=== PATIENT | male | born 1965 | race African-American/Black ===

== ENCOUNTER 2018-03-29 11:24 | Inpatient (IN) | payer OTHER ==
[2018-03-29 12:35] VITALS: BMI 31.9
--- NOTE | 2018-03-29 14:13 | HP ---
CIWA Score Nausea/Vomitin Muscle Tremors: 2 Anxiety: 2 Agitation: 2 Paroxysmal Sweats: 1-Minimal Palms Moist Orientation: 0-Oriented Tacttile Disturbances: 1-Very Mild Itch/Numbness Auditory Disturbances: 1-Very Mild Visual Disturbances: 0-None Headache: 2-Mild CIWA-Ar Total Score: 13 - Admission Criteria OASAS Guidelines: Admission for Medically Managed Detox: Requires at least one of the followin. CIWA greater than 12 2. Seizures within the past 24 hours 3. Delirium tremens within the past 24 hours 4. Hallucinations within the past 24 hours 5. Acute intervention needed for co occurring medical disorder 6. Acute intervention needed for co occurring psychiatric disorder 7. Severe withdrawal that cannot be handled at a lower level of care (continued vomiting, continued diarrhea, abnormal vital signs) requiring intravenous medication and/or fluids 8. Patient presents the following: CIWA greater than 12 Admission Criteria Met: Admission criteria met Admission ROS S - HPI Chief Complaint: i need help to stop drinking alcohol,cocaine Allergies/Adverse Reactions: Allergies Allergy/AdvReac Type Severity Reaction Status Date / Time No Known Allergies Allergy Verified 03/29/18 14:04 History of Present Illness: this 52 years old male with alcohol and cocaine dependence,seeking detox, withdrawal symptom,last detox [place] in 2013 completed history of hypertension,type 2 dm,hepatitis c history of angioplasty with stent in 2014 one stent,non compliance hypercholesterolemia history of overdose in 2007 longest period of sobriety 10 year plan to go to rehab - Ebola screening Have you traveled outside of the country in the last 21 days: No Have you had contact with anyone from an Ebola affected area: No Have you been sick,other than usual withdrawal symptoms: No Do you have a fever: No - Review of Systems Constitutional: Loss of Appetite, Night Sweats, Changes in sleep, Unintentional Wgt. Loss EENT: reports: Nose Congestion Respiratory: reports: No Symptoms reported Cardiac: reports: No Symptoms Reported GI: reports: Nausea, Vomiting, Abdominal cramping : reports: No Symptoms Reported Musculoskeletal: reports: Back Pain, Muscle Pain Integumentary: reports: Dryness Neuro: reports: Headache, Tremors Endocrine: reports: No Symptoms Reported Hematology: reports: No Symptoms Reported Psychiatric: reports: No Sypmtoms Reported, Judgement Intact, Mood/Affect Appropiate, Orientated x3, other (shizophrenia no med) Patient History - Patient Medical History Hx Anemia: No Hx Asthma: No Hx Chronic Obstructive Pulmonary Disease (COPD): No Hx Cancer: No Hx Cardiac Disorders: Yes (s/p angioplasty with stent in 2014) Hx Congestive Heart Failure: No Hx Hypertension: Yes (non compliance) Hx Hypercholesterolemia: Yes (non compliance) Hx Pacemaker: No HX Cerebrovascular Accident: No Hx Seizures: No Hx Dementia: No Hx Diabetes: Yes (non compliance) Hx Gastrointestinal Disorders: No Hx Liver Disease: No Hx Genitourinary Disorders: No Hx Sexually Transmitted Disorders: No Hx Renal Disease (ESRD): No Hx Thyroid Disease: No Hx Human Immunodeficiency Virus (HIV): No (2015 negative) Hx Hepatitis C: Yes (treated) Hx Depression: No Hx Suicide Attempt: Yes (overdose) Hx Bipolar Disorder: No Hx Schizophrenia: Yes (no ded) Other Medical History: no suicidal,no homicidal - Patient Surgical History Hx Cardiac Surgery: Yes (angioplasty with stent in 2014 in [place]) - PPD History Previous Implant?: Yes Documented Results: Negative w/o proof Implanted On Prior [facility] Admission?: No PPD to be Administered?: Yes - Smoking Cessation Smoking history: Current every day smoker Have you smoked in the past 12 months: Yes Aproximately how many cigarettes per day: 6 Cigars Per Day: 0 Hx Chewing Tobacco Use: No Initiated information on smoking cessation: Yes 'Breaking Loose' booklet given: 03/29/18 - Substance & Tx. History Hx Alcohol Use: Yes Hx Substance Use: Yes Substance Use Type: Alcohol, Cocaine Hx Substance Use Treatment: Yes ([place] in 2013) - Substances Abused Alcohol Route: Oral Frequency: Daily Amount used: 6 16 oz beers/ 1 pint rum Age of first use: 16 Date of Last Use: 03/29/18 Crack Route: Smoking Frequency: Daily Amount used: $200 Age of first use: 23 Date of Last Use: 03/27/18 Family Disease History - Family Disease History Family History: Denies Admission Physical Exam [facility] - Vital Signs Vital Signs: Vital Signs - 24 hr 03/29/18 12:33 Temperature 98.8 F Pulse Rate 84 Respiratory 20 Rate Blood Pressure 162/103 H - Physical General Appearance: Yes: Moderate Distress, Irritable, Sweating, Anxious HEENTM: Yes: Normal ENT Inspection, VITO, Pharynx Normal Respiratory: Yes: Lungs Clear, Normal Breath Sounds, No Respiratory Distress Neck: Yes: Within Normal Limits, Supple, Trachea in good position Breast: Yes: Within Normal Limits Cardiology: Yes: Within Normal Limits, Regular Rhythm, Regular Rate, S1, S2 Abdominal: Yes: Within Normal Limits, Normal Bowel Sounds, Non Tender, Soft Genitourinary: Yes: Within Normal Limits Back: Yes: Muscle Spasm Musculoskeletal: Yes: Back pain, Muscle Pain Extremities: Yes: Tremors Neurological: Yes: cement tile maker II-XII NML intact, Fully Oriented, Alert, Motor Strength 5/5 Integumentary: Yes: Dry Lymphatic: Yes: Within Normal Limits - Diagnostic (1) Alcohol dependence with uncomplicated withdrawal Current Visit: Yes Status: Acute (2) Essential hypertension Current Visit: Yes Status: Acute (3) Diabetes mellitus type 2 in nonobese Current Visit: Yes Status: Acute (4) Hypercholesterolemia Current Visit: Yes Status: Acute (5) Dehydration Current Visit: Yes Status: Acute (6) S/P angioplasty with stent Current Visit: Yes Status: Acute (7) Nicotine dependence Current Visit: Yes Status: Acute (8) Schizophrenia Current Visit: Yes Status: Acute (9) History of drug overdose Current Visit: Yes Status: Acute (10) History of hepatitis C Current Visit: Yes Status: Acute Cleared for Admission [facility] - Detox or Rehab [facility] Level of Care: Medically Managed Detox Regimen/Protocol: Librium [facility] Breath Alcohol Content Breath Alcohol Content: 0.011 Urine Drug Screen - Results Drug Screen Negative: No Urine Drug Screen Results: RONALDO-Cocaine
[2018-03-29] MEDS ORDERED: IBUPROFEN 400 MG TABLET (FP) PO PRN (15:02)
[2018-03-29] MEDS ORDERED: LOPERAMIDE HCL 2 MG CAPSULE PO PRN (15:02)
[2018-03-29] MEDS ORDERED: ACETAMINOPHEN 325 MG TABLET (FP) PO PRN (15:02)
[2018-03-29] MEDS ORDERED: MENTHOL/PHENOL 1 EACH UD MM PRN (15:02)
[2018-03-29] MEDS ORDERED: MAGNESIUM CITRATE 300 ML BOTTLE PO PRN (15:02)
[2018-03-29] MEDS ORDERED: guaiFENesin/D-METHORPHAN HB 10 ML UNIT-DOSE CUPS PO PRN (15:02)
[2018-03-29] MEDS ORDERED: MAG HYDROX/AL HYDROX/SIMETH 30 ML UNIT-DOSE CUP PO PRN (15:02)
[2018-03-29] MEDS ORDERED: MAGNESIUM HYDROX 2400MG/30ML ORAL SUSPENSION 30 ML CUP PO PRN (15:02)
[2018-03-29] MEDS ORDERED: P-EPHED 60MG/TRIPROLIDI 2.5MG TABLET PO PRN (15:02)
[2018-03-29] MEDS ORDERED: chlordiazePOXIDE HCL 25 MG CAPSULE PO PRN (15:02)
[2018-03-29] MEDS ORDERED: hydrOXYzine PAMOATE 25 MG CAPSULE (FP) PO PRN (15:02)
[2018-03-29] MEDS: chlordiazePOXIDE HCL 25 MG CAPSULE PO SCH ×2 (17:25→22:50)
[2018-03-29] MEDS ORDERED: MELATONIN 5 MG TABLETS PO PRN (22:00)
[2018-03-29] MEDS: THIAMINE HCL 100 MG TABLET (FP) PO SCH (22:51)
[2018-03-30] MEDS: chlordiazePOXIDE HCL 25 MG CAPSULE PO SCH ×4 (05:35→22:44)
[2018-03-30 09:59] LABS: HEMATOCRIT 39.5 % (35.4-49); MCH 28.3 pg (25.7-33.7); MEAN CELL VOLUME 85.8 fl (80-96); MEAN PLT VOLUME 8.5 fl (7.5-11.1); PLATELET COUNT 215 K/MM3 (134-434); RDW 16.4 % (11.9-15.9); WHITE BLOOD COUNT 4.9 K/mm3 (4.0-10.0)
[2018-03-30] MEDS: PANTOPRAZOLE 40 MG TABLET (FP) PO SCH (10:14)
[2018-03-30] MEDS: ASPIRIN COATED 81 MG TABLET.EC PO SCH (10:14)
[2018-03-30] MEDS: PRENATAL VITAMINS W/ FOLIC ACID TABLET (FP) PO SCH (10:14)
[2018-03-30 10:24] LABS: ALBUMIN 2.9 g/dl (3.4-5.0); ALK PHOS 59 U/L (45-117); ANION GAP 9 MMOL/L (8-16); BILIRUBIN,TOTAL 0.6 mg/dL (0.2-1); BLOOD UREA NITROGEN 13 mg/dL (7-18); CALCIUM 8.3 mg/dL (8.5-10.1); CHLORIDE 106 mmol/L (98-107); CO2 25 mmol/L (21-32); CREATININE 0.9 mg/dL (0.55-1.3); GLUCOSE,RANDOM 131 mg/dL (74-106); POTASSIUM 4.2 mmol/L (3.5-5.1); SGOT/AST 18 U/L (15-37); SGPT/ALT 24 U/L (13-61); SODIUM 140 mmol/L (136-145); TOT PROT 6.3 g/dl (6.4-8.2)
[2018-03-30 10:49] LABS: SICKLE CELL SCREEN NEGATIVE (NEGATIVE)
[2018-03-30] MEDS ORDERED: FLU VACCINE QUAD 60 MCG/0.5 ML (MDV 18-19) IM ONE (12:00)
--- NOTE | 2018-03-30 12:33 | PN ---
S CIWA - CIWA Score Nausea/Vomitin Muscle Tremors: 4-Moderate,w/Arms Extend Anxiety: 4-Mod. Anxious/Guarded Agitation: 2 Paroxysmal Sweats: 3 Orientation: 0-Oriented Tacttile Disturbances: 1-Very Mild Itch/Numbness Auditory Disturbances: 0-None Visual Disturbances: 0-None Headache: 1-Very Mild CIWA-Ar Total Score: 17 [facility] Progress Note (SOAP) Subjective: Tremor, interrupted sleep, nausea Objective: 03/30/18 12:23 Last Vital Signs Temp Pulse Resp BP Pulse Ox 97.1 F L 84 18 123/77 03/30/18 09:30 03/30/18 09:30 03/30/18 09:30 03/30/18 09:30 Laboratory Tests 03/29/18 03/29/18 03/30/18 14:19 16:28 05:34 WBC RBC Hgb Hct MCV MCH MCHC RDW Plt Count MPV Sickle Cell Screen Sodium Potassium Chloride Carbon Dioxide Anion Gap BUN Creatinine Creat Clearance w eGFR POC Glucometer 171 176 145 Random Glucose Calcium Total Bilirubin AST ALT Alkaline Phosphatase Total Protein Albumin RPR Titer HIV 1&2 Antibody Screen HIV P24 Antigen 03/30/18 03/30/18 03/30/18 07:00 07:00 07:00 WBC 4.9 RBC 4.60 Hgb 13.0 Hct 39.5 MCV 85.8 MCH 28.3 MCHC 33.0 RDW 16.4 H Plt Count 215 MPV 8.5 Sickle Cell Screen Negative Sodium 140 Potassium 4.2 Chloride 106 Carbon Dioxide 25 Anion Gap 9 BUN 13 Creatinine 0.9 Creat Clearance w eGFR > 60 POC Glucometer Random Glucose 131 H Calcium 8.3 L Total Bilirubin 0.6 AST 18 ALT 24 Alkaline Phosphatase 59 Total Protein 6.3 L Albumin 2.9 L RPR Titer HIV 1&2 Antibody Screen Negative HIV P24 Antigen Negative 03/30/18 07:00 WBC RBC Hgb Hct MCV MCH MCHC RDW Plt Count MPV Sickle Cell Screen Sodium Potassium Chloride Carbon Dioxide Anion Gap BUN Creatinine Creat Clearance w eGFR POC Glucometer Random Glucose Calcium Total Bilirubin AST ALT Alkaline Phosphatase Total Protein Albumin RPR Titer Nonreactive HIV 1&2 Antibody Screen HIV P24 Antigen Labs reviewed: elevated glucose due to DMT2 Assessment: 03/30/18 12:25 Withdrawal symptoms Noted with hyperglycemia Plan: Continue detox Encouraged PO water intak Hyperglycemia: secondary to DMT2; stable, continue finger stick, start metformin 500mg PO bid, start insulin novolog sliding scale with coverage bid
[2018-03-30] MEDS: metFORMIN HCL 500 MG TABLET (FP) PO SCH (17:20)
[2018-03-30] MEDS: INSULIN SLIDING SCALE (NOVOLOG) 1 VIAL SQ SCH (17:25)
[2018-03-30] MEDS: THIAMINE HCL 100 MG TABLET (FP) PO SCH (22:45)
[2018-03-31] MEDS: chlordiazePOXIDE HCL 25 MG CAPSULE PO SCH ×2 (05:40→10:15)
[2018-03-31] MEDS: metFORMIN HCL 500 MG TABLET (FP) PO SCH ×2 (07:23→17:27)
[2018-03-31] MEDS: INSULIN SLIDING SCALE (NOVOLOG) 1 VIAL SQ SCH ×2 (07:23→17:39)
[2018-03-31] MEDS: PANTOPRAZOLE 40 MG TABLET (FP) PO SCH (07:23)
[2018-03-31] MEDS: ASPIRIN COATED 81 MG TABLET.EC PO SCH (10:15)
[2018-03-31] MEDS: PRENATAL VITAMINS W/ FOLIC ACID TABLET (FP) PO SCH (10:15)
[2018-03-31] MEDS: amLODIPine BESYLATE 10 MG TABLET (FP) PO SCH (12:54)
--- NOTE | 2018-03-31 16:00 | PN ---
[facility] CIWA - CIWA Score Nausea/Vomitin-Mild Nausea/No Vomiting Muscle Tremors: 3 Anxiety: 2 Agitation: 2 Paroxysmal Sweats: 2 Orientation: 0-Oriented Tacttile Disturbances: 0-None Auditory Disturbances: 0-None Visual Disturbances: 0-None Headache: 0-None Present CIWA-Ar Total Score: 10 S Progress Note (SOAP) Subjective: Sweating, interrupted sleep Objective: 03/31/18 15:57 Last Vital Signs Temp Pulse Resp BP Pulse Ox 97.3 F L 71 18 160/99 03/31/18 13:05 03/31/18 15:23 03/31/18 15:23 03/31/18 15:23 Elevated b/p noted (h/o htn, started on norvasc 10mg daily) Laboratory Tests 03/29/18 03/29/18 03/30/18 14:19 16:28 05:34 WBC RBC Hgb Hct MCV MCH MCHC RDW Plt Count MPV Sickle Cell Screen Sodium Potassium Chloride Carbon Dioxide Anion Gap BUN Creatinine Creat Clearance w eGFR POC Glucometer 171 176 145 Random Glucose Calcium Total Bilirubin AST ALT Alkaline Phosphatase Total Protein Albumin RPR Titer HIV 1&2 Antibody Screen HIV P24 Antigen 03/30/18 03/30/18 03/30/18 07:00 07:00 07:00 WBC 4.9 RBC 4.60 Hgb 13.0 Hct 39.5 MCV 85.8 MCH 28.3 MCHC 33.0 RDW 16.4 H Plt Count 215 MPV 8.5 Sickle Cell Screen Negative Sodium 140 Potassium 4.2 Chloride 106 Carbon Dioxide 25 Anion Gap 9 BUN 13 Creatinine 0.9 Creat Clearance w eGFR > 60 POC Glucometer Random Glucose 131 H Calcium 8.3 L Total Bilirubin 0.6 AST 18 ALT 24 Alkaline Phosphatase 59 Total Protein 6.3 L Albumin 2.9 L RPR Titer HIV 1&2 Antibody Screen Negative HIV P24 Antigen Negative 03/30/18 03/30/18 03/31/18 07:00 16:22 05:39 WBC RBC Hgb Hct MCV MCH MCHC RDW Plt Count MPV Sickle Cell Screen Sodium Potassium Chloride Carbon Dioxide Anion Gap BUN Creatinine Creat Clearance w eGFR POC Glucometer 181 176 Random Glucose Calcium Total Bilirubin AST ALT Alkaline Phosphatase Total Protein Albumin RPR Titer Nonreactive HIV 1&2 Antibody Screen HIV P24 Antigen Labs reviewed Assessment: 03/31/18 15:58 Withdrawal symptoms Plan: Continue detox Encouraged PO water intake Htn, uncontrolled: start norvasc 10mg PO daily, continue to monitor Patient for early discharge tomorrow to [facility] rehab. Detox protocol adjusted to accommodate discharge.
[2018-03-31] MEDS ORDERED: chlordiazePOXIDE 5 MG CAPSULE PO SCH (17:00)
[2018-03-31] MEDS: chlordiazePOXIDE 5 MG CAPSULE PO SCH ×2 (17:25→22:19)
[2018-03-31] MEDS ORDERED: chlordiazePOXIDE HCL 25 MG CAPSULE PO PRN (21:05)
[2018-03-31] MEDS: THIAMINE HCL 100 MG TABLET (FP) PO SCH (22:19)
[2018-04-01] MEDS ORDERED: NICOTINE POLACRILEX 2 MG GUM BUC PRN (00:15)
[2018-04-01] MEDS: chlordiazePOXIDE 5 MG CAPSULE PO SCH (05:13)
[2018-04-01] MEDS: INSULIN SLIDING SCALE (NOVOLOG) 1 VIAL SQ SCH (07:23)
[2018-04-01] MEDS: metFORMIN HCL 500 MG TABLET (FP) PO SCH (07:23)
[2018-04-01] MEDS: PANTOPRAZOLE 40 MG TABLET (FP) PO SCH (07:23)
[2018-04-01 07:25] VITALS: TEMP 97.6
[2018-04-01] MEDS: ASPIRIN COATED 81 MG TABLET.EC PO SCH (09:22)
[2018-04-01] MEDS: PRENATAL VITAMINS W/ FOLIC ACID TABLET (FP) PO SCH (09:22)
[2018-04-01] MEDS: amLODIPine BESYLATE 10 MG TABLET (FP) PO SCH (09:22)
[2018-04-01 09:36] VITALS: BP 162/109; PULSE 90
[2018-04-01] MEDS ORDERED: chlordiazePOXIDE 5 MG CAPSULE PO SCH (11:00)
[2018-04-01] MEDS ORDERED: chlordiazePOXIDE HCL 10 MG CAPSULE PO SCH ×2 (11:00→17:00)
[2018-04-01] MEDS ORDERED: cloNIDine HCL 0.1 MG TABLET PO PRN (11:12)
--- NOTE | 2018-04-01 13:46 | DS ---
[facility] Detox Discharge Summary Admission Date: 03/29/18 Discharge Date: 04/01/18 - History Present History: Alcohol Dependence, Cocaine Dependence Additional Comments: Patient accepted admission to [facility] rehab. Detox completed successfully. Patient is A, A, Ox3, in nad, htn (uncontrolled), started on norvasc 10mg daily and clonidine prn. Patient educated on importance of taking his antihypertensive and antidiabetic medication, to change his lifestyle by eating healthier and exercise as tolerated to lose weight. As per patient, he was on blood pressure and diabetic medication but he stopped taking it for the past 3- 4 years. Patient educated on risk and complication of uncontrolled htn and diabetes. Patient instructed to follow up with his PCP within 1-2 weeks after discharge. Pertinent Past History: HTN DMT2 with hyperglycemia Cocaine dependence Alcohol dependence Hepatitis C HLD CAD with stent Schizophrenia - Physical Exam Results Vital Signs: Vital Signs Temperature 97.6 F 04/01/18 09:35 Pulse Rate 90 04/01/18 09:35 Respiratory Rate 19 04/01/18 09:35 Blood Pressure 162/109 H 04/01/18 09:35 O2 Sat by Pulse Oximetry (%) Pertinent Admission Physical Exam Findings: Withdrawal symptoms Laboratory Tests 03/29/18 03/29/18 03/30/18 14:19 16:28 05:34 WBC RBC Hgb Hct MCV MCH MCHC RDW Plt Count MPV Sickle Cell Screen Sodium Potassium Chloride Carbon Dioxide Anion Gap BUN Creatinine Creat Clearance w eGFR POC Glucometer 171 176 145 Random Glucose Calcium Total Bilirubin AST ALT Alkaline Phosphatase Total Protein Albumin RPR Titer HIV 1&2 Antibody Screen HIV P24 Antigen 03/30/18 03/30/18 03/30/18 07:00 07:00 07:00 WBC 4.9 RBC 4.60 Hgb 13.0 Hct 39.5 MCV 85.8 MCH 28.3 MCHC 33.0 RDW 16.4 H Plt Count 215 MPV 8.5 Sickle Cell Screen Negative Sodium 140 Potassium 4.2 Chloride 106 Carbon Dioxide 25 Anion Gap 9 BUN 13 Creatinine 0.9 Creat Clearance w eGFR > 60 POC Glucometer Random Glucose 131 H Calcium 8.3 L Total Bilirubin 0.6 AST 18 ALT 24 Alkaline Phosphatase 59 Total Protein 6.3 L Albumin 2.9 L RPR Titer HIV 1&2 Antibody Screen Negative HIV P24 Antigen Negative 03/30/18 03/30/18 03/31/18 07:00 16:22 05:39 WBC RBC Hgb Hct MCV MCH MCHC RDW Plt Count MPV Sickle Cell Screen Sodium Potassium Chloride Carbon Dioxide Anion Gap BUN Creatinine Creat Clearance w eGFR POC Glucometer 181 176 Random Glucose Calcium Total Bilirubin AST ALT Alkaline Phosphatase Total Protein Albumin RPR Titer Nonreactive HIV 1&2 Antibody Screen HIV P24 Antigen 03/31/18 04/01/18 16:31 05:12 WBC RBC Hgb Hct MCV MCH MCHC RDW Plt Count MPV Sickle Cell Screen Sodium Potassium Chloride Carbon Dioxide Anion Gap BUN Creatinine Creat Clearance w eGFR POC Glucometer 190 176 Random Glucose Calcium Total Bilirubin AST ALT Alkaline Phosphatase Total Protein Albumin RPR Titer HIV 1&2 Antibody Screen HIV P24 Antigen Labs reviewed - Treatment Hospital Course: Detox Protocol Followed, Detoxed Safely, Responded well, Discharged Condition Good, Rehab Referral Accepted - Medication Discharge Medications: Ambulatory Orders Amlodipine Besylate [Norvasc -] 10 mg PO DAILY 04/01/18 Aspirin [ASA -] 81 mg PO DAILY 04/01/18 Metformin HCl [Glucophage] 500 mg PO BIDAC 04/01/18 Pantoprazole Sodium [Protonix -] 40 mg PO DAILY 04/01/18 cloNIDine HCL [Catapres -] 0.1 mg PO Q8H PRN 04/01/18 - Diagnosis (1) Type 2 diabetes mellitus with hyperglycemia Status: Chronic (2) Cocaine dependence Status: Chronic (3) Alcohol dependence with uncomplicated withdrawal Status: Acute (4) Essential hypertension Status: Chronic (5) History of hepatitis C Status: Chronic (6) Hypercholesterolemia Status: Chronic (7) Nicotine dependence Status: Chronic (8) S/P angioplasty with stent Status: Chronic (9) Schizophrenia Status: Chronic - AMA Did Patient Leave Against Medical Advice: No (Patient accepted admission to [facility] rehab)
== END 2018-04-01 11:59 | disposition other institution (70) | DRG 774 ==
LOC: YASAS 11:24 → Y3N 14:24
PROC: HZ2ZZZZ Detoxification Services for Substance Abuse Treatment (ICD-10-PCS; principal; 2018-03-29)
DX: F10.230 Alcohol dependence with withdrawal, uncomplicated (principal); F14.20 Cocaine dependence, uncomplicated; F17.210 Nicotine dependence, cigarettes, uncomplicated; F20.9 Schizophrenia, unspecified; B18.2 Chronic viral hepatitis C; I25.10 Atherosclerotic heart disease of native coronary artery without angina pectoris; I10 Essential (primary) hypertension; Z95.5 Presence of coronary angioplasty implant and graft; E86.0 Dehydration; E11.65 Type 2 diabetes mellitus with hyperglycemia; Z79.84 Long term (current) use of oral hypoglycemic drugs; E78.00 Pure hypercholesterolemia, unspecified; M25.571 Pain in right ankle and joints of right foot; Z91.5 Personal history of self-harm; Z59.0 Homelessness
CPT/HCPCS: 36415; 73610-TC-RT-FY; 80053; 82962; 85027; 85660; 86593; 87389

== ENCOUNTER 2018-04-01 12:03 | Inpatient (IN) | payer OTHER ==
[2018-04-01 12:58] VITALS: BMI 32.3
--- NOTE | 2018-04-01 13:13 | HP ---
Psychiatrist Admission - Data Date of interview: 04/01/18 Admission source: [facility] Identifying data: Patient is a 52 year old single male, father of one, unemployed, homeless, and is supported by [facility]. This is patient's first admission to rehab. Patient admitted to for alcohol and cocaine dependence. Medical History: s/p angioplasty with stent in 2014, hypertension, hypercholesterolemia, diabetes Psychiatric History: Patient's first psychiatric contact was at 19-20 years of age after overdosing on pillls. He reports seeing the psychiatrist in the ER but denies admission to a psychiartric unit. Patient is a poor historian. He was first diagnosed with schizophrenia in his 20's while seeing a psychiatrist in an outpatient setting. Patient unable to provide a clear cohesive psychiatric history. He reports seeing a mental health provider at the [facility] several months ago. Psychiatric treatment was than discontinued and he was followed by a psychiatrist at the [facility] homeless clinic. Patient states he signed himself out of the homeless [facility] and no longer has a psychiatrist. As per pharmacy claims, patient is prescribed abilify 15mg and lexapro 10mg. Patient agreeable to resuming medications while in detox. At present he reports feeling tired. No psychotic symptoms noted. Physical/Sexual Abuse/Trauma History: denies. Vital Signs: Vital Signs - 24 hr 04/01/18 12:55 Temperature 98.6 F Pulse Rate 83 Respiratory 18 Rate Blood Pressure 157/98 Allergies/Adverse Reactions: Allergies Allergy/AdvReac Type Severity Reaction Status Date / Time No Known Allergies Allergy Verified 04/01/18 12:58 Date of last physical exam: 03/29/18 Concur with the findings of this exam: Yes - Substance Abuse/Tx History Hx Alcohol Use: Yes ("Drink until i pass out.") Hx Substance Use: Yes (Cocaine- $50-60 per day) Substance Use Type: Cocaine Hx Substance Use Treatment: Yes (Multiple rehabs in the past) Mental Status Exam - Mental Status Exam Alert and Oriented to: Time, Person Cognitive Function: Fair Patient Appearance: Well Groomed Mood: Euthymic Affect: Mood Congruent Patient Behavior: Fatigued, Cooperative Speech Pattern: Clear Voice Loudness: Mildly Soft/Quiet Thought Process: Goal Oriented Thought Disorder: Not Present Hallucinations: Denies Suicidal Ideation: Denies Homicidal Ideation: Denies Insight/Judgement: Poor Sleep: Fair Appetite: Fair Muscle strength/Tone: Normal Gait/Station: Normal Psychiatric Findings - Problem List ([place] 1, 2,3) (1) Alcohol dependence Current Visit: Yes Status: Acute (2) Cocaine dependence Current Visit: Yes Status: Acute (3) Schizophrenia Current Visit: Yes Status: Chronic Comment: Self reports. - Initial Treatment Plan Initial Treatment Plan: Psychoeducation provided. Rehab in progress. Will order lexapro 10mg + abilify 15mg qhs. Benefits and side effects discussed. Verbal consent given.
[2018-04-01] MEDS ORDERED: MAG HYDROX/AL HYDROX/SIMETH 30 ML UNIT-DOSE CUP PO PRN (13:54)
[2018-04-01] MEDS ORDERED: NICOTINE POLACRILEX 2 MG GUM BUC PRN (13:54)
[2018-04-01] MEDS ORDERED: ACETAMINOPHEN 325 MG TABLET (FP) PO PRN ×2 (13:54→14:00)
[2018-04-01] MEDS ORDERED: LOPERAMIDE HCL 2 MG CAPSULE PO PRN (13:54)
[2018-04-01] MEDS ORDERED: MAGNESIUM CITRATE 300 ML BOTTLE PO PRN (13:54)
[2018-04-01] MEDS ORDERED: IBUPROFEN 400 MG TABLET (FP) PO PRN (13:54)
[2018-04-01] MEDS ORDERED: MENTHOL/PHENOL 1 EACH UD MM PRN (13:54)
[2018-04-01] MEDS ORDERED: hydrOXYzine PAMOATE 50 MG CAPSULE (FP) PO PRN (13:54)
[2018-04-01] MEDS ORDERED: guaiFENesin/D-METHORPHAN HB 10 ML UNIT-DOSE CUPS PO PRN (13:54)
[2018-04-01] MEDS ORDERED: MAGNESIUM HYDROX 2400MG/30ML ORAL SUSPENSION 30 ML CUP PO PRN (13:54)
[2018-04-01] MEDS ORDERED: P-EPHED 60MG/TRIPROLIDI 2.5MG TABLET PO PRN (13:54)
--- NOTE | 2018-04-01 13:54 | HP ---
[facility] Rehab Assess/Revision - Admission History Admitted to Rehab from: [facility] Date of Admission to Rehab: 04/01/2018 - Vital signs Vital Signs: Vital Signs Period Temp Pulse Resp BP Sys/Rich Pulse Ox Last 24 Hr 98.6 F 83 18 157/98 - Findings Detox History & Physical reviewed: Yes Concur with findings: Yes Inpatient Rehab Admission - Initial Determination Are CD services needed?: Yes Free of communicable disease: Yes Not in need of hospitalization: Yes - Rehab Admission Criteria Previous failed treatment: Yes Poor recovery environment: Yes Patient is meeting Inpatient Rehab admission criteria:: Yes
[2018-04-01] MEDS ORDERED: cloNIDine HCL 0.1 MG TABLET PO PRN (13:58)
[2018-04-01] MEDS: INSULIN SLIDING SCALE (NOVOLOG) 1 VIAL SQ SCH (16:54)
[2018-04-01] MEDS: metFORMIN HCL 500 MG TABLET (FP) PO SCH (16:54)
[2018-04-01] MEDS: THIAMINE HCL 100 MG TABLET (FP) PO SCH (21:54)
[2018-04-01] MEDS: ARIPiprazole 15 MG TABLET PO SCH (21:54)
[2018-04-01] MEDS ORDERED: MELATONIN 5 MG TABLETS PO PRN (22:00)
[2018-04-02] MEDS: PANTOPRAZOLE 40 MG TABLET (FP) PO SCH (07:09)
[2018-04-02] MEDS: metFORMIN HCL 500 MG TABLET (FP) PO SCH ×2 (07:09→16:42)
[2018-04-02] MEDS: INSULIN SLIDING SCALE (NOVOLOG) 1 VIAL SQ SCH ×3 (07:40→16:45)
[2018-04-02] MEDS: ASPIRIN COATED 81 MG TABLET.EC PO SCH (10:44)
[2018-04-02] MEDS: PRENATAL VITAMINS W/ FOLIC ACID TABLET (FP) PO SCH (10:44)
[2018-04-02] MEDS: ESCITALOPRAM OXALATE 10 MG TABLET (FP) PO SCH (10:45)
[2018-04-02] MEDS: amLODIPine BESYLATE 10 MG TABLET (FP) PO SCH (10:45)
[2018-04-02] MEDS: THIAMINE HCL 100 MG TABLET (FP) PO SCH (21:51)
[2018-04-02] MEDS: ARIPiprazole 15 MG TABLET PO SCH (21:51)
[2018-04-03] MEDS: PANTOPRAZOLE 40 MG TABLET (FP) PO SCH (06:45)
[2018-04-03] MEDS: metFORMIN HCL 500 MG TABLET (FP) PO SCH ×2 (06:45→16:58)
[2018-04-03] MEDS: INSULIN SLIDING SCALE (NOVOLOG) 1 VIAL SQ SCH ×3 (06:59→16:58)
[2018-04-03] MEDS: amLODIPine BESYLATE 10 MG TABLET (FP) PO SCH (10:53)
[2018-04-03] MEDS: ASPIRIN COATED 81 MG TABLET.EC PO SCH (10:53)
[2018-04-03] MEDS: ESCITALOPRAM OXALATE 10 MG TABLET (FP) PO SCH (10:53)
[2018-04-03] MEDS: PRENATAL VITAMINS W/ FOLIC ACID TABLET (FP) PO SCH (10:55)
[2018-04-03] MEDS ORDERED: INSULIN (NOVOLOG) ASPART 100 UNITS/ML 10ML VIAL ONE ×2 (11:39→16:42)
[2018-04-03] MEDS: THIAMINE HCL 100 MG TABLET (FP) PO SCH (22:45)
[2018-04-03] MEDS: ARIPiprazole 15 MG TABLET PO SCH (22:45)
[2018-04-04] MEDS: metFORMIN HCL 500 MG TABLET (FP) PO SCH ×2 (06:26→17:06)
[2018-04-04] MEDS: INSULIN SLIDING SCALE (NOVOLOG) 1 VIAL SQ SCH ×3 (06:44→17:06)
[2018-04-04] MEDS: PANTOPRAZOLE 40 MG TABLET (FP) PO SCH (06:48)
[2018-04-04] MEDS: amLODIPine BESYLATE 10 MG TABLET (FP) PO SCH (10:52)
[2018-04-04] MEDS: PRENATAL VITAMINS W/ FOLIC ACID TABLET (FP) PO SCH (10:52)
[2018-04-04] MEDS: ASPIRIN COATED 81 MG TABLET.EC PO SCH (10:52)
[2018-04-04] MEDS: ESCITALOPRAM OXALATE 10 MG TABLET (FP) PO SCH (10:52)
[2018-04-04] MEDS: ARIPiprazole 15 MG TABLET PO SCH (22:33)
[2018-04-04] MEDS: THIAMINE HCL 100 MG TABLET (FP) PO SCH (22:34)
[2018-04-05] MEDS: metFORMIN HCL 500 MG TABLET (FP) PO SCH ×2 (06:30→16:47)
[2018-04-05] MEDS: INSULIN SLIDING SCALE (NOVOLOG) 1 VIAL SQ SCH ×2 (06:31→12:00)
[2018-04-05] MEDS: PANTOPRAZOLE 40 MG TABLET (FP) PO SCH (06:31)
[2018-04-05] MEDS ORDERED: cloNIDine HCL 0.1 MG TABLET PO ONE (07:02)
--- NOTE | 2018-04-05 07:02 | PN ---
[facility] Progress Note Note: Patient's blood pressure was B/P 154/103. Patient is asymptomatic. Vital Signs Temperature 97.7 F 04/05/18 07:00 Pulse Rate 86 04/05/18 07:00 Respiratory Rate 18 04/05/18 07:00 Blood Pressure 154/103 H 04/05/18 07:00 O2 Sat by Pulse Oximetry (%) Action: Clonidine 0.1mg 1 tablet oral ordered
[2018-04-05] MEDS: ESCITALOPRAM OXALATE 10 MG TABLET (FP) PO SCH (10:27)
[2018-04-05] MEDS: amLODIPine BESYLATE 10 MG TABLET (FP) PO SCH (10:27)
[2018-04-05] MEDS: ASPIRIN COATED 81 MG TABLET.EC PO SCH (10:27)
[2018-04-05] MEDS: PRENATAL VITAMINS W/ FOLIC ACID TABLET (FP) PO SCH (10:27)
[2018-04-05] MEDS: ARIPiprazole 15 MG TABLET PO SCH (22:42)
[2018-04-05] MEDS: THIAMINE HCL 100 MG TABLET (FP) PO SCH (22:42)
[2018-04-06] MEDS: PANTOPRAZOLE 40 MG TABLET (FP) PO SCH (07:22)
[2018-04-06] MEDS: metFORMIN HCL 500 MG TABLET (FP) PO SCH ×2 (07:22→16:34)
[2018-04-06] MEDS: PRENATAL VITAMINS W/ FOLIC ACID TABLET (FP) PO SCH (10:59)
[2018-04-06] MEDS: ASPIRIN COATED 81 MG TABLET.EC PO SCH (10:59)
[2018-04-06] MEDS: amLODIPine BESYLATE 10 MG TABLET (FP) PO SCH (10:59)
[2018-04-06] MEDS: ESCITALOPRAM OXALATE 10 MG TABLET (FP) PO SCH (10:59)
[2018-04-06] MEDS: ARIPiprazole 15 MG TABLET PO SCH (21:59)
[2018-04-06] MEDS: THIAMINE HCL 100 MG TABLET (FP) PO SCH (21:59)
[2018-04-07] MEDS: PANTOPRAZOLE 40 MG TABLET (FP) PO SCH (06:52)
[2018-04-07] MEDS: metFORMIN HCL 500 MG TABLET (FP) PO SCH ×2 (06:52→17:18)
[2018-04-07] MEDS: ESCITALOPRAM OXALATE 10 MG TABLET (FP) PO SCH (10:53)
[2018-04-07] MEDS: PRENATAL VITAMINS W/ FOLIC ACID TABLET (FP) PO SCH (10:53)
[2018-04-07] MEDS: amLODIPine BESYLATE 10 MG TABLET (FP) PO SCH (10:53)
[2018-04-07] MEDS: ASPIRIN COATED 81 MG TABLET.EC PO SCH (10:53)
[2018-04-07] MEDS: THIAMINE HCL 100 MG TABLET (FP) PO SCH (22:41)
[2018-04-07] MEDS: ARIPiprazole 15 MG TABLET PO SCH (22:41)
[2018-04-08] MEDS: metFORMIN HCL 500 MG TABLET (FP) PO SCH ×2 (06:50→16:34)
[2018-04-08] MEDS: PANTOPRAZOLE 40 MG TABLET (FP) PO SCH (06:50)
[2018-04-08] MEDS: ESCITALOPRAM OXALATE 10 MG TABLET (FP) PO SCH (10:49)
[2018-04-08] MEDS: amLODIPine BESYLATE 10 MG TABLET (FP) PO SCH (10:49)
[2018-04-08] MEDS: PRENATAL VITAMINS W/ FOLIC ACID TABLET (FP) PO SCH (10:49)
[2018-04-08] MEDS: ASPIRIN COATED 81 MG TABLET.EC PO SCH (10:49)
[2018-04-08] MEDS: THIAMINE HCL 100 MG TABLET (FP) PO SCH (22:13)
[2018-04-08] MEDS: ARIPiprazole 15 MG TABLET PO SCH (22:13)
[2018-04-09] MEDS: metFORMIN HCL 500 MG TABLET (FP) PO SCH ×2 (06:46→16:59)
[2018-04-09] MEDS: PANTOPRAZOLE 40 MG TABLET (FP) PO SCH (06:47)
[2018-04-09] MEDS: ESCITALOPRAM OXALATE 10 MG TABLET (FP) PO SCH (11:09)
[2018-04-09] MEDS: PRENATAL VITAMINS W/ FOLIC ACID TABLET (FP) PO SCH (11:09)
[2018-04-09] MEDS: amLODIPine BESYLATE 10 MG TABLET (FP) PO SCH (11:09)
[2018-04-09] MEDS: ASPIRIN COATED 81 MG TABLET.EC PO SCH (11:11)
[2018-04-09] MEDS: ARIPiprazole 15 MG TABLET PO SCH (22:10)
[2018-04-09] MEDS: THIAMINE HCL 100 MG TABLET (FP) PO SCH (22:10)
[2018-04-10] MEDS: metFORMIN HCL 500 MG TABLET (FP) PO SCH ×2 (06:32→17:05)
[2018-04-10] MEDS: PANTOPRAZOLE 40 MG TABLET (FP) PO SCH (06:32)
[2018-04-10] MEDS: amLODIPine BESYLATE 10 MG TABLET (FP) PO SCH (10:56)
[2018-04-10] MEDS: ASPIRIN COATED 81 MG TABLET.EC PO SCH (10:56)
[2018-04-10] MEDS: ESCITALOPRAM OXALATE 10 MG TABLET (FP) PO SCH (10:56)
[2018-04-10] MEDS: PRENATAL VITAMINS W/ FOLIC ACID TABLET (FP) PO SCH (10:56)
[2018-04-10] MEDS: THIAMINE HCL 100 MG TABLET (FP) PO SCH (22:22)
[2018-04-10] MEDS: ARIPiprazole 15 MG TABLET PO SCH (22:22)
[2018-04-11] MEDS: metFORMIN HCL 500 MG TABLET (FP) PO SCH ×2 (06:31→17:03)
[2018-04-11] MEDS: PANTOPRAZOLE 40 MG TABLET (FP) PO SCH (06:31)
[2018-04-11] MEDS: ESCITALOPRAM OXALATE 10 MG TABLET (FP) PO SCH (10:26)
[2018-04-11] MEDS: amLODIPine BESYLATE 10 MG TABLET (FP) PO SCH (10:26)
[2018-04-11] MEDS: ASPIRIN COATED 81 MG TABLET.EC PO SCH (10:26)
[2018-04-11] MEDS: PRENATAL VITAMINS W/ FOLIC ACID TABLET (FP) PO SCH (10:26)
--- NOTE | 2018-04-11 12:09 | PN ---
Psychiatric Progress Note Vital Signs: Vital Signs Period Temp Pulse Resp BP Sys/Rich Pulse Ox Last 24 Hr 97.5 F 70-77 18-18 133-135/74-84 Date of Session: 04/11/18 Chief Complaint:: Discharge Note HPI: Patient addressing Alcohol and Cocaine Dependence comorbid with Nicotine Dependence and Schizophrenia, ROS: HTN, HLD, CAD, DM, Hep C were medically managed Current Medications: Active Medications Generic Name Dose Route Start Last Admin Trade Name Freq PRN Reason Stop Dose Admin Acetaminophen 650 mg 04/01/18 14:00 Tylenol - PO Q6H PRN FEVER Al Hydroxide/Mg Hydroxide 30 ml 04/01/18 13:54 Mylanta Oral Suspension - PO Q6H PRN DYSPEPSIA Amlodipine Besylate 10 mg 04/02/18 10:00 04/11/18 10:26 Norvasc - PO 10 mg DAILY DELICIA Administration Aripiprazole 15 mg 04/01/18 22:00 04/10/18 22:22 Abilify PO 15 mg HS DELICIA Administration Aspirin 81 mg 04/02/18 10:00 04/11/18 10:26 Ecotrin - PO 81 mg DAILY DELICIA Administration Clonidine 0.1 mg 04/01/18 13:58 Catapres - PO Q8H PRN HYPERTENSION Escitalopram Oxalate 10 mg 04/02/18 10:00 04/11/18 10:26 Lexapro - PO 10 mg DAILY DELICIA Administration Eucalyptus/Menthol/Phenol/Sorbitol 1 each 04/01/18 13:54 Cepastat Lozenge - MM Q4H PRN SORE THROAT Guaifenesin 10 ml 04/01/18 13:54 Robitussin Dm - PO Q6H PRN COUGH Hydroxyzine Pamoate 50 mg 04/01/18 13:54 Vistaril - PO Q6H PRN AGITATION Loperamide HCl 4 mg 04/01/18 13:54 Imodium - PO Q6H PRN DIARRHEA Magnesium Citrate 300 ml 04/01/18 13:54 Citroma - PO Q48H PRN CONSTIPATION Magnesium Hydroxide 30 ml 04/01/18 13:54 Milk Of Magnesia - PO DAILY PRN CONSTIPATION Melatonin 5 mg 04/01/18 22:00 04/05/18 22:43 Melatonin PO 5 mg HS PRN Administration INSOMNIA Metformin HCl 500 mg 04/01/18 16:30 04/11/18 06:31 Glucophage - PO 500 mg BID@0700,1630 DELICIA Administration Nicotine Polacrilex 2 mg 04/01/18 13:54 Nicorette Gum - BUC Q2H PRN NICOTINE REPLACEMENT RX Pantoprazole Sodium 40 mg 04/02/18 07:00 04/11/18 06:31 Protonix - PO 40 mg DAILY@0700 DELICIA Administration Multivit/Folic Acid/Iron 1 tab 04/02/18 10:00 04/11/18 10:26 Vitamins ([facility]) - PO 1 tab DAILY DELICIA Administration Pseudoephedrine/Triprolidine 1 combo 04/01/18 13:54 Actifed - PO TID PRN NASAL CONGESTION Thiamine HCl 100 mg 04/01/18 22:00 04/10/18 22:22 Vitamin B1 - PO 100 mg HS DELICIA Administration Current Side Effect: No Lab tests ordered: Yes Lab tests reviewed: Yes Provider note:: Patient will complete this program on 04/12/18. He has met his treatment goals and will continue to address his issues in outpatient treatment at [facility] at [address] [place] [address]. Told journalists and other writers that from his participation in this program, he has learned that he cannot do it alone. He responded well to Lexapro 10 mg po daily and Abilify 15 mg po HS. Scripts for 30 days supply of these medications will be electronically transmitted to [facility] at [address] [place] [address]. He is stable for discharge on 04/12/18 Total face to face time:: 35 Mental Status Exam - Mental Status Exam Alert and Oriented to: Time, Place, Person Cognitive Function: Fair Patient Appearance: Well Groomed Mood: Hopeful, Euthymic Affect: Appropriate Patient Behavior: Cooperative Speech Pattern: Clear Voice Loudness: Normal Thought Process: Intact Thought Disorder: Not Present Hallucinations: Denies Suicidal Ideation: Denies Homicidal Ideation: Denies Insight/Judgement: Fair Sleep: Fair Appetite: Fair Muscle strength/Tone: Normal Gait/Station: Normal Psychiatric Treatment Plan - Problem List (1) Alcohol dependence Current Visit: Yes (2) Cocaine dependence Current Visit: Yes (3) Nicotine dependence Current Visit: No (4) Schizophrenia Current Visit: Yes Comment: Self reports. (5) Essential hypertension Current Visit: No (6) History of hepatitis C Current Visit: No (7) Hypercholesterolemia Current Visit: No (8) S/P angioplasty with stent Current Visit: No (9) Type 2 diabetes mellitus with hyperglycemia Current Visit: No Initial treatment plan: Patient will be discharged tomorrow and referred to [facility] for outpatient treatment
[2018-04-11] MEDS: ARIPiprazole 15 MG TABLET PO SCH (22:16)
[2018-04-11] MEDS: THIAMINE HCL 100 MG TABLET (FP) PO SCH (22:17)
[2018-04-12] MEDS: metFORMIN HCL 500 MG TABLET (FP) PO SCH (06:41)
[2018-04-12] MEDS: PANTOPRAZOLE 40 MG TABLET (FP) PO SCH (06:41)
[2018-04-12 07:06] VITALS: BP 131/69; PULSE 76; TEMP 98
[2018-04-12] MEDS: ESCITALOPRAM OXALATE 10 MG TABLET (FP) PO SCH (09:56)
[2018-04-12] MEDS: amLODIPine BESYLATE 10 MG TABLET (FP) PO SCH (09:56)
[2018-04-12] MEDS: PRENATAL VITAMINS W/ FOLIC ACID TABLET (FP) PO SCH (09:56)
[2018-04-12] MEDS: ASPIRIN COATED 81 MG TABLET.EC PO SCH (09:56)
--- NOTE | 2018-04-12 12:15 | PN ---
[facility] Progress Note Note: REHAB COMPLETED. ALERT O X 3. PT REPORTS HE HAS PMD BUT HAS NEVER SEEN THE INDIVIDUAL. PT WAS INSTRUCTED TO CALL THE LISTED MCP ON HIS INSURANCE CARD AND MAKE APPOINTMENT FOR ROUTINE MEDICAL MANAGEMENT. Vital Signs 04/12/18 07:05 Temperature 98.0 F Pulse Rate 76 Respiratory 18 Rate Blood Pressure 131/69 Laboratory Tests 04/01/18 04/02/18 04/02/18 16:53 07:08 12:53 POC Glucometer 141 154 243 04/02/18 04/02/18 04/03/18 16:42 21:54 06:44 POC Glucometer 203 121 120 04/03/18 04/03/18 04/04/18 11:35 16:26 06:25 POC Glucometer 354 291 164 04/04/18 04/04/18 04/05/18 11:34 17:06 06:28 POC Glucometer 168 145 125 04/05/18 04/06/18 04/06/18 16:46 07:21 16:34 POC Glucometer 130 133 175 04/07/18 04/07/18 04/08/18 06:52 17:12 06:49 POC Glucometer 142 154 148 04/08/18 04/09/18 04/09/18 16:32 06:46 16:17 POC Glucometer 175 120 174 04/10/18 04/10/18 04/11/18 06:32 17:05 06:30 POC Glucometer 117 124 126 04/11/18 04/12/18 17:02 06:40 POC Glucometer 123 123 NAD PLAN:D/C PT TODAY FOLLOW UP WITH PCP NEEDED FOR MEDICAL MANAGEMENT IN 1-2 WEEKS AFTER DISCHARGE RX FOR NORVASC AND METFORMIN SENT TO [facility] FOR PT TO [facility]..
== END 2018-04-12 10:25 | disposition home or self-care (01) | DRG 772 ==
LOC: YASAS 12:03 → Y5N 12:04
PROVIDERS: ADMIT Psychiatry & Neurology Psychiatry; ATTEND Psychiatry & Neurology Psychiatry
PROC: HZ42ZZZ Group Counseling for Substance Abuse Treatment, Cognitive-Behavioral (ICD-10-PCS; principal; 2018-04-01)
DX: F10.20 Alcohol dependence, uncomplicated (principal); F14.20 Cocaine dependence, uncomplicated; F17.210 Nicotine dependence, cigarettes, uncomplicated; F20.9 Schizophrenia, unspecified; I10 Essential (primary) hypertension; B18.2 Chronic viral hepatitis C; E78.5 Hyperlipidemia, unspecified; E11.65 Type 2 diabetes mellitus with hyperglycemia; I25.10 Atherosclerotic heart disease of native coronary artery without angina pectoris; Z95.5 Presence of coronary angioplasty implant and graft; Z59.0 Homelessness
CPT/HCPCS: 82962; J0735

== ENCOUNTER 2018-06-03 16:27 | Inpatient (IN) | payer OTHER ==
[2018-06-03 17:17] VITALS: BMI 32.0
--- NOTE | 2018-06-03 21:23 | HP ---
CIWA Score Nausea/Vomitin Muscle Tremors: 3 Anxiety: 3 Agitation: 3 Paroxysmal Sweats: 2 Orientation: 2-Disoriented Date<2 days Tacttile Disturbances: 0-None Auditory Disturbances: 0-None Visual Disturbances: 0-None Headache: 2-Mild CIWA-Ar Total Score: 17 - Admission Criteria OASAS Guidelines: Admission for Medically Managed Detox: Requires at least one of the followin. CIWA greater than 12 2. Seizures within the past 24 hours 3. Delirium tremens within the past 24 hours 4. Hallucinations within the past 24 hours 5. Acute intervention needed for co occurring medical disorder 6. Acute intervention needed for co occurring psychiatric disorder 7. Severe withdrawal that cannot be handled at a lower level of care (continued vomiting, continued diarrhea, abnormal vital signs) requiring intravenous medication and/or fluids 8. Admission ROS [facility] - [facility] Chief Complaint: Alcohol withdrawal symptoms Allergies/Adverse Reactions: Allergies Allergy/AdvReac Type Severity Reaction Status Date / Time No Known Allergies Allergy Verified 04/01/18 12:58 History of Present Illness: 52 years old male with a long history of alcohol dependence is seeking admission to detox. Patient was in detox 03/29/2018 - 04/12/2018 at [facility] for detox/ Rehab. He reports only a day of sobriety. He has medical history of Diabetes Type 2, hypertension, hyperlipidemia and depression. He is status post angioplasty with 1 stent in 2014. Reports suicide attempt in 2007 and suicidal ideation at this time. Exam Limitations: No Limitations - Ebola screening Have you traveled outside of the country in the last 21 days: No (N) Have you had contact with anyone from an Ebola affected area: No Have you been sick,other than usual withdrawal symptoms: No Do you have a fever: No - Review of Systems Constitutional: Chills, Night Sweats, Changes in sleep EENT: reports: No Symptoms Reported Respiratory: reports: No Symptoms reported Cardiac: reports: No Symptoms Reported GI: reports: Poor Appetite, Poor Fluid Intake : reports: No Symptoms Reported Musculoskeletal: reports: Back Pain Integumentary: reports: Dryness, Flushing Neuro: reports: Tremors Endocrine: reports: No Symptoms Reported Hematology: reports: No Symptoms Reported Psychiatric: reports: Mood/Affect Appropiate, Depressed Other Systems: Reviewed and Negative Patient History - Patient Medical History Hx Anemia: No Hx Asthma: No Hx Chronic Obstructive Pulmonary Disease (COPD): No Hx Cancer: No Hx Cardiac Disorders: Yes (Cardiac cath with 1 stent in 2014) Hx Congestive Heart Failure: No Hx Hypertension: Yes (on meds) Hx Hypercholesterolemia: Yes (non compliance) Hx Pacemaker: No HX Cerebrovascular Accident: No Hx Seizures: No Hx Dementia: No Hx Diabetes: Yes (Type II) Hx Gastrointestinal Disorders: No Hx Liver Disease: No Hx Genitourinary Disorders: No Hx Sexually Transmitted Disorders: No Hx Renal Disease (ESRD): No Hx Thyroid Disease: No Hx Human Immunodeficiency Virus (HIV): No ( Negative 2015 ) Hx Hepatitis C: Yes (treated) Hx Depression: Yes Hx Suicide Attempt: Yes (Overdose in 2007. Denies suicidal ideation at this time ) Hx Bipolar Disorder: No Hx Schizophrenia: No - Patient Surgical History Past Surgical History: Yes Hx Cardiac Surgery: Yes (angioplasty with stent in 2014 in [place]) Anesthesia Reaction: No - PPD History Date: 03/31/18 Results: 0 mm PPD to be Administered?: No - Reproductive History Patient is a Female of Child Bearing Age (11 -55 yrs old): No (MALE) - Smoking Cessation Smoking history: Current every day smoker Have you smoked in the past 12 months: Yes Aproximately how many cigarettes per day: 6 Cigars Per Day: 0 Hx Chewing Tobacco Use: No Initiated information on smoking cessation: Yes 'Breaking Loose' booklet given: 06/03/18 - Substance & Tx. History Hx Alcohol Use: Yes Hx Substance Use: Yes Substance Use Type: Alcohol, Cocaine, Marijuana - Substances Abused Alcohol Route: Oral Frequency: Daily Amount used: BEER - 1 PACK ( 6 x 16. oz) Age of first use: 11 Date of Last Use: 06/02/18 Cocaine Route: Inhalation Frequency: Daily Amount used: $30 Age of first use: 19 Date of Last Use: 06/02/18 Marijuana/Hashish Route: Smoking Frequency: 3-6 times per week Amount used: $10 Age of first use: 16 Date of Last Use: 06/01/18 Family Disease History - Family Disease History Family History: Denies Admission Physical Exam BHS - Vital Signs Vital Signs: Vital Signs - 24 hr 06/03/18 17:15 Temperature 98.3 F Pulse Rate 96 H Respiratory 18 Rate Blood Pressure 158/96 - Physical General Appearance: Yes: Moderate Distress, Tremorous HEENTM: Yes: Within Normal Limits Respiratory: Yes: Lungs Clear, Normal Breath Sounds, No Respiratory Distress Neck: Yes: Supple Breast: Yes: Breast Exam Deferred Cardiology: Yes: Tachycardia Abdominal: Yes: Normal Bowel Sounds, Protuberent Genitourinary: Yes: Within Normal Limits Back: Yes: Normal Inspection Musculoskeletal: Yes: Back pain Extremities: Yes: Tremors Neurological: Yes: Alert, Normal Mood/Affect Integumentary: Yes: Warm Lymphatic: Yes: Within Normal Limits - Diagnostic (1) Depression Current Visit: Yes Status: Chronic Qualifiers: Depression Type: unspecified Qualified Code(s): F32.9 - Major depressive disorder, single episode, unspecified (2) Alcohol dependence with uncomplicated withdrawal Current Visit: Yes Status: Chronic (3) Cocaine dependence Current Visit: Yes Status: Chronic Qualifiers: Substance use status: uncomplicated Qualified Code(s): F14.20 - Cocaine dependence, uncomplicated (4) Essential hypertension Current Visit: Yes Status: Chronic (5) History of hepatitis C Current Visit: No Status: Chronic (6) Hypercholesterolemia Current Visit: Yes Status: Chronic (7) Nicotine dependence Current Visit: Yes Status: Chronic (8) Type 2 diabetes mellitus with hyperglycemia Current Visit: Yes Status: Chronic Cleared for Admission [facility] - Detox or Rehab [facility] Level of Care: Medically Managed Detox Regimen/Protocol: Librium [facility] Breath Alcohol Content Breath Alcohol Content: 0 Urine Drug Screen - Results Drug Screen Negative: No Urine Drug Screen Results: THC-Marijuana, RONALDO-Cocaine, BZO-Benzodiazepines Inpatient Rehab Admission - Rehab Decision to Admit Inpatient rehab admission?: No - Initial Determination Are CD services needed?: No Free of communicable disease: Yes Not in need of hospitalization: Yes
[2018-06-03] MEDS ORDERED: P-EPHED 60MG/TRIPROLIDI 2.5MG TABLET PO PRN (21:57)
[2018-06-03] MEDS ORDERED: chlordiazePOXIDE HCL 25 MG CAPSULE PO PRN (21:57)
[2018-06-03] MEDS ORDERED: guaiFENesin/D-METHORPHAN HB 10 ML UNIT-DOSE CUPS PO PRN (21:57)
[2018-06-03] MEDS ORDERED: IBUPROFEN 400 MG TABLET (FP) PO PRN (21:57)
[2018-06-03] MEDS ORDERED: MAG HYDROX/AL HYDROX/SIMETH 30 ML UNIT-DOSE CUP PO PRN (21:57)
[2018-06-03] MEDS ORDERED: MENTHOL/PHENOL 1 EACH UD MM PRN (21:57)
[2018-06-03] MEDS ORDERED: MAGNESIUM HYDROX 2400MG/30ML ORAL SUSPENSION 30 ML CUP PO PRN (21:57)
[2018-06-03] MEDS ORDERED: MAGNESIUM CITRATE 300 ML BOTTLE PO PRN (21:57)
[2018-06-03] MEDS ORDERED: NICOTINE POLACRILEX 2 MG GUM BC PRN (21:57)
[2018-06-03] MEDS ORDERED: ACETAMINOPHEN 325 MG TABLET (FP) PO PRN (21:57)
[2018-06-03] MEDS ORDERED: LOPERAMIDE HCL 2 MG CAPSULE PO PRN (21:57)
[2018-06-03] MEDS ORDERED: MELATONIN 5 MG TABLETS PO PRN (22:00)
[2018-06-04] MEDS: chlordiazePOXIDE HCL 25 MG CAPSULE PO SCH ×5 (04:19→22:18)
[2018-06-04] MEDS: THIAMINE HCL 100 MG TABLET (FP) PO SCH ×2 (04:19→22:18)
--- NOTE | 2018-06-04 09:27 | CONSULT ---
[facility] Psychiatric Consult - Data Date of interview: 06/04/18 Admission source: [facility] Identifying data: Patient is a 52 year old single male, father of one, unemployed, homeless, and is supported by [employer]. This is one of multiple admissions for patient. Patient admitted to for alcohol and cocaine dependence. Substance Abuse History: Smoking Cessation. Smoking history: Current every day smoker. Have you smoked in the past 12 months: Yes. Aproximately how many cigarettes per day: 6. Cigars Per Day: 0. Hx Chewing Tobacco Use: No. Initiated information on smoking cessation: Yes. 'Breaking Loose' booklet given : 06/03/18. - Substance & Tx. History. Hx Alcohol Use: Yes. Hx Substance Use : Yes. Substance Use Type: Alcohol, Cocaine, Marijuana. - Substances Abused. Alcohol. Route: Oral. Frequency: Daily. Amount used: BEER - 1 PACK ( 6 x 16. oz). Age of first use: 11. Date of Last Use: 06/02/18. Cocaine. Route : Inhalation. Frequency: Daily. Amount used: $30. Age of first use: 19. Date of Last Use: 06/02/18. Marijuana/Hashish. Route: Smoking. Frequency: 3-6 times per week. Amount used: $10. Age of first use: 16 Medical History: s/p angioplasty with stent in 2014, hypertension, hypercholesterolemia, diabetes Psychiatric History: Patient seen by medical underwriter while in rehab two months ago. Patient's first psychiatric contact was at 19-20 years of age after overdosing on pillls. He reports seeing the psychiatrist in the ER but denies admission to a psychiartric unit. States he was first diagnosed with schizophrenia in his 20' s while seeing a psychiatrist in an outpatient setting. Today, patient presents as withdrawn, soft spoken, guarded and with a flat affect. Patient denies current outpatient psychiatric care. Mr. Mullins was discharged from rehab in March with a thirty day script of lexapro 10mg and abilify 15mg. He completed the prescription but never received an additional refill due to not having an outpatient psychiatrist. Patient agreeable to resuming medications while in detox. At present he reports feeling tired. No psychotic symptoms noted. Physical/Sexual Abuse/Trauma History: denies. Mental Status Exam - Mental Status Exam Alert and Oriented to: Time, Place, Person Cognitive Function: Good Patient Appearance: Well Groomed Mood: Sad, Withdrawn Affect: Mood Congruent Patient Behavior: Guarded Speech Pattern: Clear Voice Loudness: Moderately Soft/Quiet Thought Process: Intact, Goal Oriented Thought Disorder: Not Present Hallucinations: Denies Suicidal Ideation: Denies Homicidal Ideation: Denies Insight/Judgement: Poor Sleep: Poorly Appetite: Fair Muscle strength/Tone: Normal Gait/Station: Normal Psychiatric Findings - Problem List ([place] 1, 2,3) (1) Alcohol dependence with uncomplicated withdrawal Current Visit: Yes Status: Acute (2) Cocaine dependence Current Visit: Yes Status: Chronic Qualifiers: Substance use status: uncomplicated Qualified Code(s): F14.20 - Cocaine dependence, uncomplicated (3) Nicotine dependence Current Visit: Yes Status: Chronic (4) Substance induced mood disorder Current Visit: Yes Status: Acute (5) Schizophrenia Current Visit: Yes Status: Chronic Comment: Self reports. - Initial Treatment Plan Initial Treatment Plan: Psychoeducatin provided. Detoxification in progress. Will restart patient on Lexapro 10mg + Abilify 15mg. Benefits and side effects discussed. Verbal consent given.
[2018-06-04 10:07] LABS: HEMATOCRIT 40.9 % (35.4-49); HEMOGLOBIN 14.3 GM/dL (11.7-16.9); MCH 31.1 pg (25.7-33.7); MEAN CELL VOLUME 88.7 fl (80-96); MEAN PLT VOLUME 9.2 fl (7.5-11.1); PLATELET COUNT 162 K/MM3 (134-434); RBC 4.61 M/mm3 (4.00-5.60); RDW 16.8 % (11.9-15.9); WHITE BLOOD COUNT 3.9 K/mm3 (4.0-10.0)
[2018-06-04] MEDS: NICOTINE 14 MG/24 HOURS TOPICAL PATCH TD SCH (10:16)
[2018-06-04] MEDS: amLODIPine BESYLATE 10 MG TABLET (FP) PO SCH (10:16)
[2018-06-04] MEDS: PANTOPRAZOLE 40 MG TABLET (FP) PO SCH (10:16)
[2018-06-04] MEDS: ASPIRIN 81 MG CHEWABLE TABLETS PO SCH (10:16)
[2018-06-04] MEDS: PRENATAL VITAMINS W/ FOLIC ACID TABLET (FP) PO SCH (10:17)
[2018-06-04 10:31] LABS: ALBUMIN 3.3 g/dl (3.4-5.0); ALK PHOS 54 U/L (45-117); ANION GAP 7 MMOL/L (8-16); BILIRUBIN,TOTAL 0.4 mg/dL (0.2-1); BLOOD UREA NITROGEN 13 mg/dL (7-18); CHLORIDE 107 mmol/L (98-107); CO2 27 mmol/L (21-32); CREATININE 0.9 mg/dL (0.55-1.3); GLUCOSE,RANDOM 111 mg/dL (74-106); POTASSIUM 4.1 mmol/L (3.5-5.1); SGOT/AST 11 U/L (15-37); SGPT/ALT 11 U/L (13-61); SODIUM 140 mmol/L (136-145); TOT PROT 6.8 g/dl (6.4-8.2)
[2018-06-04] MEDS: ESCITALOPRAM OXALATE 10 MG TABLET (FP) PO SCH (11:05)
[2018-06-04 13:27] LABS: RPR REACTIVE 1:1 (NONREACTIVE)
--- NOTE | 2018-06-04 13:28 | EKG ---
Test Reason : Blood Pressure : / mmHG Vent. Rate : 074 BPM Atrial Rate : 074 BPM P-R Int : 216 ms QRS Dur : 100 ms QT Int : 440 ms P-R-T Axes : 051 008 086 degrees QTc Int : 488 ms POOR DATA QUALITY, INTERPRETATION MAY BE ADVERSELY AFFECTED SINUS RHYTHM WITH 1ST DEGREE A-V BLOCK POSSIBLE LEFT ATRIAL ENLARGEMENT T WAVE ABNORMALITY, CONSIDER LATERAL ISCHEMIA PROLONGED QT ABNORMAL ECG NO PREVIOUS ECGS AVAILABLE Confirmed by SHARIF FAROOQ, CHELY ([id number]) on 06/04/2018 1:28:14 PM Referred By: Confirmed By:CHELY OLGUIN MD
[2018-06-04 15:39] LABS: TREPONEMA ANTIBODY REACTIVE (NONREACTIVE)
--- NOTE | 2018-06-04 18:03 | PN ---
S CIWA - CIWA Score Nausea/Vomitin-No Nausea/No Vomiting Muscle Tremors: 3 Anxiety: 3 Agitation: 0-Normal Activity Paroxysmal Sweats: 3 Orientation: 2-Disoriented Date<2 days Tacttile Disturbances: 0-None Auditory Disturbances: 2-Mild Harshness/Frighten Visual Disturbances: 1-Very Mild Sensitivity Headache: 0-None Present CIWA-Ar Total Score: 14 BHS Progress Note (SOAP) Subjective: Sweating, Anxious, Tremors. Objective: PATIENT A & O X 2 (UNCERTAIN ABOUT CURRENT DAY / DATE). PATIENT OBSERVED AMBULATING ON UNIT. IN NO ACUTE DISTRESS. 06/04/18 18:04 Vital Signs Temperature 98.7 F 06/04/18 13:20 Pulse Rate 72 06/04/18 13:20 Respiratory Rate 20 06/04/18 13:20 Blood Pressure 154/97 06/04/18 13:20 O2 Sat by Pulse Oximetry (%) Laboratory Tests 06/03/18 06/04/18 06/04/18 23:17 07:00 07:00 WBC 3.9 L RBC 4.61 Hgb 14.3 Hct 40.9 MCV 88.7 MCH 31.1 MCHC 35.0 RDW 16.8 H Plt Count 162 D MPV 9.2 Sodium 140 Potassium 4.1 Chloride 107 Carbon Dioxide 27 Anion Gap 7 L BUN 13 Creatinine 0.9 Creat Clearance w eGFR > 60 POC Glucometer 177 Random Glucose 111 H Calcium 9.0 Total Bilirubin 0.4 AST 11 L ALT 11 L Alkaline Phosphatase 54 Total Protein 6.8 Albumin 3.3 L RPR Titer T.pallidum Ab (MHA) 06/04/18 07:00 WBC RBC Hgb Hct MCV MCH MCHC RDW Plt Count MPV Sodium Potassium Chloride Carbon Dioxide Anion Gap BUN Creatinine Creat Clearance w eGFR POC Glucometer Random Glucose Calcium Total Bilirubin AST ALT Alkaline Phosphatase Total Protein Albumin RPR Titer Reactive 1:1 H D T.pallidum Ab (MHA) Reactive LABS NOTED. Assessment: 06/04/18 18:06 WITHDRAWAL SYMPTOMS. HYPERTENSION. 06/04/18 18:08 Plan: CONTINUE ETOX. CLONIDINE, 0.1 MG PO BID FOR ELEVATED BP DESPITE TREATMENT. PATIENT REPORTS THAT HE COMPLETED A FULL COURSE OF ANTIBIOTIC TREATMENT FOR SYPHILIS IN THE PAST.
[2018-06-04] MEDS: cloNIDine HCL 0.1 MG TABLET PO SCH (22:18)
[2018-06-04] MEDS: ARIPiprazole 15 MG TABLET PO SCH (23:14)
[2018-06-05] MEDS: chlordiazePOXIDE HCL 25 MG CAPSULE PO SCH ×3 (05:13→17:22)
[2018-06-05] MEDS: PANTOPRAZOLE 40 MG TABLET (FP) PO SCH (10:02)
[2018-06-05] MEDS: ASPIRIN 81 MG CHEWABLE TABLETS PO SCH (10:02)
[2018-06-05] MEDS: amLODIPine BESYLATE 10 MG TABLET (FP) PO SCH (10:03)
[2018-06-05] MEDS: cloNIDine HCL 0.1 MG TABLET PO SCH ×2 (10:03→22:36)
[2018-06-05] MEDS: ESCITALOPRAM OXALATE 10 MG TABLET (FP) PO SCH (10:03)
[2018-06-05] MEDS: PRENATAL VITAMINS W/ FOLIC ACID TABLET (FP) PO SCH (10:03)
[2018-06-05] MEDS: NICOTINE 14 MG/24 HOURS TOPICAL PATCH TD SCH (10:03)
--- NOTE | 2018-06-05 16:06 | PN ---
S CIWA - CIWA Score Nausea/Vomitin-No Nausea/No Vomiting Muscle Tremors: 3 Anxiety: 3 Agitation: 0-Normal Activity Paroxysmal Sweats: 3 Orientation: 0-Oriented Tacttile Disturbances: 1-Very Mild Itch/Numbness Auditory Disturbances: 0-None Visual Disturbances: 1-Very Mild Sensitivity Headache: 0-None Present CIWA-Ar Total Score: 11 BHS Progress Note (SOAP) Subjective: Sweating, Anxious, Tremors. Objective: PATIENT A & O X 3. IN NO ACUTE DISTRESS. 06/05/18 16:05 Vital Signs Temperature 98.6 F 06/05/18 13:35 Pulse Rate 59 L 06/05/18 13:35 Respiratory Rate 18 06/05/18 13:35 Blood Pressure 124/75 06/05/18 13:35 O2 Sat by Pulse Oximetry (%) Laboratory Tests 06/03/18 06/04/18 06/04/18 23:17 07:00 07:00 WBC 3.9 L RBC 4.61 Hgb 14.3 Hct 40.9 MCV 88.7 MCH 31.1 MCHC 35.0 RDW 16.8 H Plt Count 162 D MPV 9.2 Sodium 140 Potassium 4.1 Chloride 107 Carbon Dioxide 27 Anion Gap 7 L BUN 13 Creatinine 0.9 Creat Clearance w eGFR > 60 POC Glucometer 177 Random Glucose 111 H Calcium 9.0 Total Bilirubin 0.4 AST 11 L ALT 11 L Alkaline Phosphatase 54 Total Protein 6.8 Albumin 3.3 L RPR Titer T.pallidum Ab (MHA) 06/04/18 06/05/18 07:00 06:24 WBC RBC Hgb Hct MCV MCH MCHC RDW Plt Count MPV Sodium Potassium Chloride Carbon Dioxide Anion Gap BUN Creatinine Creat Clearance w eGFR POC Glucometer 121 Random Glucose Calcium Total Bilirubin AST ALT Alkaline Phosphatase Total Protein Albumin RPR Titer Reactive 1:1 H D T.pallidum Ab (MHA) Reactive LABS NOTED. Assessment: 06/05/18 16:05 WITHDRAWAL SYMPTOMS. Plan: CONTINUE DETOX. INCREASE DAILY PO FLUID INTAKE.
[2018-06-05] MEDS: ARIPiprazole 15 MG TABLET PO SCH (22:36)
[2018-06-05] MEDS: THIAMINE HCL 100 MG TABLET (FP) PO SCH (22:36)
[2018-06-05] MEDS: chlordiazePOXIDE 5 MG CAPSULE PO SCH (22:36)
[2018-06-06] MEDS: chlordiazePOXIDE 5 MG CAPSULE PO SCH ×3 (06:13→16:49)
[2018-06-06] MEDS: ASPIRIN 81 MG CHEWABLE TABLETS PO SCH (10:03)
[2018-06-06] MEDS: ESCITALOPRAM OXALATE 10 MG TABLET (FP) PO SCH (10:04)
[2018-06-06] MEDS: PRENATAL VITAMINS W/ FOLIC ACID TABLET (FP) PO SCH (10:04)
[2018-06-06] MEDS: amLODIPine BESYLATE 10 MG TABLET (FP) PO SCH (10:04)
[2018-06-06] MEDS: PANTOPRAZOLE 40 MG TABLET (FP) PO SCH (10:04)
[2018-06-06] MEDS: NICOTINE 14 MG/24 HOURS TOPICAL PATCH TD SCH (10:04)
[2018-06-06] MEDS: cloNIDine HCL 0.1 MG TABLET PO SCH ×2 (10:04→22:16)
--- NOTE | 2018-06-06 12:57 | PN ---
S CIWA - CIWA Score Nausea/Vomitin-Mild Nausea/No Vomiting Muscle Tremors: 2 Anxiety: 1-Mildly Anxious Agitation: 1-Slight > Activity Paroxysmal Sweats: 1-Minimal Palms Moist Orientation: 0-Oriented Tacttile Disturbances: 0-None Auditory Disturbances: 0-None Visual Disturbances: 0-None Headache: 1-Very Mild CIWA-Ar Total Score: 7 BHS Progress Note (SOAP) Subjective: feeling better less tremor mild sweating social with peers in day room Objective: 06/06/18 12:57 Vital Signs Temperature 96.7 F L 06/06/18 09:13 Pulse Rate 82 06/06/18 09:13 Respiratory Rate 18 06/06/18 09:13 Blood Pressure 134/84 06/06/18 09:13 O2 Sat by Pulse Oximetry (%) Laboratory Last Values WBC 3.9 K/mm3 (4.0-10.0) L 06/04/18 07:00 RBC 4.61 M/mm3 (4.00-5.60) 06/04/18 07:00 Hgb 14.3 GM/dL (11.7-16.9) 06/04/18 07:00 Hct 40.9 % (35.4-49) 06/04/18 07:00 MCV 88.7 fl (80-96) 06/04/18 07:00 MCH 31.1 pg (25.7-33.7) 06/04/18 07:00 MCHC 35.0 g/dl (32.0-35.9) 06/04/18 07:00 RDW 16.8 % (11.9-15.9) H 06/04/18 07:00 Plt Count 162 K/MM3 (134-434) D 06/04/18 07:00 MPV 9.2 fl (7.5-11.1) 06/04/18 07:00 Sodium 140 mmol/L (136-145) 06/04/18 07:00 Potassium 4.1 mmol/L (3.5-5.1) 06/04/18 07:00 Chloride 107 mmol/L (98-107) 06/04/18 07:00 Carbon Dioxide 27 mmol/L (21-32) 06/04/18 07:00 Anion Gap 7 MMOL/L (8-16) L 06/04/18 07:00 BUN 13 mg/dL (7-18) 06/04/18 07:00 Creatinine 0.9 mg/dL (0.55-1.3) 06/04/18 07:00 Creat Clearance w eGFR > 60 (>60) 06/04/18 07:00 POC Glucometer 138 UNITS (80-120) 06/06/18 06:30 Random Glucose 111 mg/dL (74-106) H 06/04/18 07:00 Calcium 9.0 mg/dL (8.5-10.1) 06/04/18 07:00 Total Bilirubin 0.4 mg/dL (0.2-1) 06/04/18 07:00 AST 11 U/L (15-37) L 06/04/18 07:00 ALT 11 U/L (13-61) L 06/04/18 07:00 Alkaline Phosphatase 54 U/L (45-117) 06/04/18 07:00 Total Protein 6.8 g/dl (6.4-8.2) 06/04/18 07:00 Albumin 3.3 g/dl (3.4-5.0) L 06/04/18 07:00 RPR Titer Reactive 1:1 (NONREACTIVE) H D 06/04/18 07:00 T.pallidum Ab (MHA) Reactive (NONREACTIVE) 06/04/18 07:00 + syphilis since 1080's treated with penicillin current asymptomatic reported doing well in detox wants to follow up with in patient rehab lab noted 06/06/18 12:59 Assessment: 06/06/18 13:03 alcohol withdrawal sx Plan: continue detox
[2018-06-06] MEDS: THIAMINE HCL 100 MG TABLET (FP) PO SCH (22:16)
[2018-06-06] MEDS: ARIPiprazole 15 MG TABLET PO SCH (22:16)
[2018-06-06] MEDS: chlordiazePOXIDE HCL 10 MG CAPSULE PO SCH (23:36)
[2018-06-07] MEDS: chlordiazePOXIDE HCL 10 MG CAPSULE PO SCH ×3 (05:39→17:13)
[2018-06-07] MEDS: amLODIPine BESYLATE 10 MG TABLET (FP) PO SCH (10:12)
[2018-06-07] MEDS: ESCITALOPRAM OXALATE 10 MG TABLET (FP) PO SCH (10:12)
[2018-06-07] MEDS: ASPIRIN 81 MG CHEWABLE TABLETS PO SCH (10:12)
[2018-06-07] MEDS: PRENATAL VITAMINS W/ FOLIC ACID TABLET (FP) PO SCH (10:12)
[2018-06-07] MEDS: cloNIDine HCL 0.1 MG TABLET PO SCH (10:12)
[2018-06-07] MEDS: NICOTINE 14 MG/24 HOURS TOPICAL PATCH TD SCH (10:12)
[2018-06-07] MEDS: PANTOPRAZOLE 40 MG TABLET (FP) PO SCH (10:13)
[2018-06-07 13:36] VITALS: BP 111/75; PULSE 69; TEMP 97.8
--- NOTE | 2018-06-07 15:05 | DS ---
[facility] Detox Discharge Summary Admission Date: 06/03/18 Discharge Date: 06/07/18 - History Present History: Alcohol Dependence Additional Comments: 52 years old male admitted on 06/03/18 for alcohol withdrawal stabilization completed alcohol detox regimen [facility] Physical Exam Results Vital Signs: Vital Signs Temperature 97.8 F 06/07/18 13:35 Pulse Rate 69 06/07/18 13:35 Respiratory Rate 18 06/07/18 13:35 Blood Pressure 111/75 06/07/18 13:35 O2 Sat by Pulse Oximetry (%) Pertinent Admission Physical Exam Findings: alcohol withdrawal sx Laboratory Last Values WBC 3.9 K/mm3 (4.0-10.0) L 06/04/18 07:00 RBC 4.61 M/mm3 (4.00-5.60) 06/04/18 07:00 Hgb 14.3 GM/dL (11.7-16.9) 06/04/18 07:00 Hct 40.9 % (35.4-49) 06/04/18 07:00 MCV 88.7 fl (80-96) 06/04/18 07:00 MCH 31.1 pg (25.7-33.7) 06/04/18 07:00 MCHC 35.0 g/dl (32.0-35.9) 06/04/18 07:00 RDW 16.8 % (11.9-15.9) H 06/04/18 07:00 Plt Count 162 K/MM3 (134-434) D 06/04/18 07:00 MPV 9.2 fl (7.5-11.1) 06/04/18 07:00 Sodium 140 mmol/L (136-145) 06/04/18 07:00 Potassium 4.1 mmol/L (3.5-5.1) 06/04/18 07:00 Chloride 107 mmol/L (98-107) 06/04/18 07:00 Carbon Dioxide 27 mmol/L (21-32) 06/04/18 07:00 Anion Gap 7 MMOL/L (8-16) L 06/04/18 07:00 BUN 13 mg/dL (7-18) 06/04/18 07:00 Creatinine 0.9 mg/dL (0.55-1.3) 06/04/18 07:00 Creat Clearance w eGFR > 60 (>60) 06/04/18 07:00 POC Glucometer 138 UNITS (80-120) 06/06/18 06:30 Random Glucose 111 mg/dL (74-106) H 06/04/18 07:00 Calcium 9.0 mg/dL (8.5-10.1) 06/04/18 07:00 Total Bilirubin 0.4 mg/dL (0.2-1) 06/04/18 07:00 AST 11 U/L (15-37) L 06/04/18 07:00 ALT 11 U/L (13-61) L 06/04/18 07:00 Alkaline Phosphatase 54 U/L (45-117) 06/04/18 07:00 Total Protein 6.8 g/dl (6.4-8.2) 06/04/18 07:00 Albumin 3.3 g/dl (3.4-5.0) L 06/04/18 07:00 RPR Titer Reactive 1:1 (NONREACTIVE) H D 06/04/18 07:00 T.pallidum Ab (MHA) Reactive (NONREACTIVE) 06/04/18 07:00 lab noted - Treatment Hospital Course: Detox Protocol Followed, Detoxed Safely, Responded well, Discharged Condition Good, Rehab Referral Accepted Patient has Accepted a [facility] - Medication Discharge Medications: Ambulatory Orders cloNIDine HCL [Catapres -] 0.1 mg PO Q8H PRN 04/01/18 Escitalopram Oxalate [Lexapro -] 10 mg PO DAILY #30 tablet 04/11/18 Aspirin [ASA -] 81 mg PO DAILY #30 tab.chew 04/12/18 Pantoprazole Sodium [Protonix -] 40 mg PO DAILY #14 tablet.ec 04/12/18 Aripiprazole [Abilify] 15 mg PO DAILY 06/03/18 Amlodipine Besylate [Norvasc -] 10 mg PO DAILY #60 tablet 06/06/18 Metformin HCl [Glucophage] 500 mg PO BIDAC #60 tablet 06/06/18 - Diagnosis (1) Alcohol dependence with uncomplicated withdrawal Current Visit: Yes Status: Acute (2) Substance induced mood disorder Current Visit: Yes Status: Suspected (3) Essential hypertension Current Visit: Yes Status: Chronic (4) Hypercholesterolemia Current Visit: Yes Status: Chronic (5) Nicotine dependence Current Visit: Yes Status: Acute Qualifiers: Nicotine product type: cigarettes Substance use status: in withdrawal Qualified Code(s): F17.213 - Nicotine dependence, cigarettes, with withdrawal (6) Type 2 diabetes mellitus with hyperglycemia Current Visit: Yes Status: Chronic Qualifiers: Diabetes mellitus [facility] insulin use: unspecified superintendent container terminal insulin use status Qualified Code(s): E11.65 - Type 2 diabetes mellitus with hyperglycemia (7) History of hepatitis C Current Visit: Yes Status: Chronic - AMA Did Patient Leave Against Medical Advice: No
== END 2018-06-07 17:45 | disposition other institution (70) | DRG 774 ==
LOC: YASAS 16:27 → Y3N 23:20
PROVIDERS: ADMIT Surgery; ATTEND Surgery
PROC: HZ2ZZZZ Detoxification Services for Substance Abuse Treatment (ICD-10-PCS; principal; 2018-06-03)
DX: F10.230 Alcohol dependence with withdrawal, uncomplicated (principal); F14.20 Cocaine dependence, uncomplicated; F17.213 Nicotine dependence, cigarettes, with withdrawal; F19.24 Other psychoactive substance dependence with psychoactive substance-induced mood disorder; F20.0 Paranoid schizophrenia; F32.9 Major depressive disorder, single episode, unspecified; I10 Essential (primary) hypertension; B18.2 Chronic viral hepatitis C; R00.0 Tachycardia, unspecified; Z87.438 Personal history of other diseases of male genital organs; Z95.5 Presence of coronary angioplasty implant and graft; Z91.14 Patient's other noncompliance with medication regimen; Z91.5 Personal history of self-harm; Z59.0 Homelessness
CPT/HCPCS: 36415; 80053; 82962; 85027; 86593; 86780; 93005; 93010; J0735

== ENCOUNTER 2018-06-07 17:53 | Inpatient (IN) | payer OTHER ==
--- NOTE | 2018-06-07 15:06 | HP ---
[facility] Re[facility] Assess/Revision - Admission History Admitted to Rehab from: [facility] Date of Admission to Rehab: 06/07/18 - Findings Detox History & Physical reviewed: Yes Concur with findings: Yes Comments/Additional Findings: transferred from detox to rehab admission as per protocol Inpatient Rehab Admission - Rehab Decision to Admit Inpatient rehab admission?: Yes - Initial Determination Are CD services needed?: Yes Free of communicable disease: Yes Not in need of hospitalization: Yes - Rehab Admission Criteria Previous failed treatment: Yes Poor recovery environment: Yes Comorbidities: Yes Lacks judgement: No Patient is meeting Inpatient Rehab admission criteria:: Yes
[2018-06-07] MEDS: metFORMIN HCL 500 MG TABLET (FP) PO SCH (17:30)
[~2018-06-07 17:53] MED LIST: ACETAMINOPHEN 325 MG TABLET (FP) PO PRN; IBUPROFEN 400 MG TABLET (FP) PO PRN; LOPERAMIDE HCL 2 MG CAPSULE PO PRN; MAG HYDROX/AL HYDROX/SIMETH 30 ML UNIT-DOSE CUP PO PRN; MAGNESIUM CITRATE 300 ML BOTTLE PO PRN; MAGNESIUM HYDROX 2400MG/30ML ORAL SUSPENSION 30 ML CUP PO PRN; MENTHOL/PHENOL 1 EACH UD MM PRN; NICOTINE 14 MG/24 HOURS TOPICAL PATCH TD PRN; NICOTINE POLACRILEX 2 MG GUM BUC PRN; P-EPHED 60MG/TRIPROLIDI 2.5MG TABLET PO PRN; guaiFENesin/D-METHORPHAN HB 10 ML UNIT-DOSE CUPS PO PRN
[2018-06-07] MEDS: THIAMINE HCL 100 MG TABLET (FP) PO SCH (21:02)
[2018-06-07] MEDS ORDERED: MELATONIN 5 MG TABLETS PO PRN (22:00)
[2018-06-08] MEDS: metFORMIN HCL 500 MG TABLET (FP) PO SCH ×2 (06:57→16:35)
[2018-06-08] MEDS: PRENATAL VITAMINS W/ FOLIC ACID TABLET (FP) PO SCH (09:38)
[2018-06-08] MEDS: ASPIRIN 81 MG CHEWABLE TABLETS PO SCH (09:38)
[2018-06-08] MEDS: amLODIPine BESYLATE 10 MG TABLET (FP) PO SCH (09:38)
[2018-06-08] MEDS: THIAMINE HCL 100 MG TABLET (FP) PO SCH (21:06)
[2018-06-09] MEDS: metFORMIN HCL 500 MG TABLET (FP) PO SCH ×2 (06:38→16:41)
[2018-06-09] MEDS: PRENATAL VITAMINS W/ FOLIC ACID TABLET (FP) PO SCH (09:32)
[2018-06-09] MEDS: ASPIRIN 81 MG CHEWABLE TABLETS PO SCH (09:32)
[2018-06-09] MEDS: amLODIPine BESYLATE 10 MG TABLET (FP) PO SCH (09:32)
[2018-06-09] MEDS: THIAMINE HCL 100 MG TABLET (FP) PO SCH (21:59)
[2018-06-10] MEDS: metFORMIN HCL 500 MG TABLET (FP) PO SCH ×2 (06:39→17:18)
[2018-06-10] MEDS: PRENATAL VITAMINS W/ FOLIC ACID TABLET (FP) PO SCH (09:58)
[2018-06-10] MEDS: amLODIPine BESYLATE 10 MG TABLET (FP) PO SCH (09:58)
[2018-06-10] MEDS: ASPIRIN 81 MG CHEWABLE TABLETS PO SCH (09:58)
--- NOTE | 2018-06-10 14:53 | PN ---
S Progress Note Note: PT C/O RED RASH ON CORNER AROUND HIS LEFT EYE. PT DENIES TRUAMA.DENIES PAIN OR ITCH. Vital Signs - 24 hr 06/10/18 06/10/18 06/10/18 00:30 03:30 06:41 Temperature 97.7 F Pulse Rate 72 Respiratory 18 18 18 Rate Blood Pressure 136/81 06/10/18 10:00 Temperature Pulse Rate 73 Respiratory Rate Blood Pressure 142/81 SKIN EXAM:RED PAPULAR RASH AT LATERAL ASPECT OF SKIN AROUND LEFT EYE. NO PUS OR EXUDATE NOTED. PLAN:HYDROCORTISONE CREAM 1% APPLY DIRECTED. FOLLOW UP IF NOT GETTING BETTER.
[2018-06-10] MEDS: THIAMINE HCL 100 MG TABLET (FP) PO SCH (21:50)
[2018-06-10] MEDS: HYDROCORTISONE 1% TOPICAL CREAM 30 GM TUBE TP SCH (21:50)
[2018-06-11] MEDS: metFORMIN HCL 500 MG TABLET (FP) PO SCH ×2 (06:26→16:47)
[2018-06-11] MEDS: amLODIPine BESYLATE 10 MG TABLET (FP) PO SCH (10:01)
[2018-06-11] MEDS: PRENATAL VITAMINS W/ FOLIC ACID TABLET (FP) PO SCH (10:01)
[2018-06-11] MEDS: ASPIRIN 81 MG CHEWABLE TABLETS PO SCH (10:01)
[2018-06-11] MEDS: HYDROCORTISONE 1% TOPICAL CREAM 30 GM TUBE TP SCH ×2 (10:04→22:13)
[2018-06-11] MEDS: THIAMINE HCL 100 MG TABLET (FP) PO SCH (22:12)
[2018-06-12] MEDS: metFORMIN HCL 500 MG TABLET (FP) PO SCH ×2 (06:26→16:25)
[2018-06-12] MEDS: amLODIPine BESYLATE 10 MG TABLET (FP) PO SCH (09:57)
[2018-06-12] MEDS: ASPIRIN 81 MG CHEWABLE TABLETS PO SCH (09:57)
[2018-06-12] MEDS: PRENATAL VITAMINS W/ FOLIC ACID TABLET (FP) PO SCH (09:57)
[2018-06-12] MEDS: HYDROCORTISONE 1% TOPICAL CREAM 30 GM TUBE TP SCH ×2 (09:58→21:10)
[2018-06-12] MEDS: THIAMINE HCL 100 MG TABLET (FP) PO SCH (21:10)
[2018-06-13] MEDS: metFORMIN HCL 500 MG TABLET (FP) PO SCH ×2 (06:25→16:30)
[2018-06-13] MEDS: ASPIRIN 81 MG CHEWABLE TABLETS PO SCH (10:31)
[2018-06-13] MEDS: amLODIPine BESYLATE 10 MG TABLET (FP) PO SCH (10:31)
[2018-06-13] MEDS: HYDROCORTISONE 1% TOPICAL CREAM 30 GM TUBE TP SCH ×2 (10:31→21:11)
[2018-06-13] MEDS: PRENATAL VITAMINS W/ FOLIC ACID TABLET (FP) PO SCH (10:31)
[2018-06-13] MEDS: THIAMINE HCL 100 MG TABLET (FP) PO SCH (21:11)
[2018-06-14] MEDS: metFORMIN HCL 500 MG TABLET (FP) PO SCH ×2 (06:49→16:57)
[2018-06-14] MEDS: ASPIRIN 81 MG CHEWABLE TABLETS PO SCH (09:21)
[2018-06-14] MEDS: HYDROCORTISONE 1% TOPICAL CREAM 30 GM TUBE TP SCH ×2 (09:21→22:11)
[2018-06-14] MEDS: PRENATAL VITAMINS W/ FOLIC ACID TABLET (FP) PO SCH (09:21)
[2018-06-14] MEDS: amLODIPine BESYLATE 10 MG TABLET (FP) PO SCH (09:21)
[2018-06-14] MEDS: THIAMINE HCL 100 MG TABLET (FP) PO SCH (22:11)
[2018-06-15] MEDS: metFORMIN HCL 500 MG TABLET (FP) PO SCH ×2 (07:16→17:35)
[2018-06-15] MEDS: PRENATAL VITAMINS W/ FOLIC ACID TABLET (FP) PO SCH (09:39)
[2018-06-15] MEDS: ASPIRIN 81 MG CHEWABLE TABLETS PO SCH (09:39)
[2018-06-15] MEDS: amLODIPine BESYLATE 10 MG TABLET (FP) PO SCH (09:39)
[2018-06-15] MEDS: HYDROCORTISONE 1% TOPICAL CREAM 30 GM TUBE TP SCH ×2 (09:40→23:19)
[2018-06-15] MEDS: THIAMINE HCL 100 MG TABLET (FP) PO SCH (23:19)
[2018-06-16] MEDS: metFORMIN HCL 500 MG TABLET (FP) PO SCH ×2 (06:59→16:44)
[2018-06-16] MEDS: ASPIRIN 81 MG CHEWABLE TABLETS PO SCH (09:53)
[2018-06-16] MEDS: amLODIPine BESYLATE 10 MG TABLET (FP) PO SCH (09:53)
[2018-06-16] MEDS: PRENATAL VITAMINS W/ FOLIC ACID TABLET (FP) PO SCH (09:53)
[2018-06-16] MEDS: HYDROCORTISONE 1% TOPICAL CREAM 30 GM TUBE TP SCH ×2 (09:53→21:02)
[2018-06-16] MEDS: THIAMINE HCL 100 MG TABLET (FP) PO SCH (21:01)
[2018-06-17] MEDS: metFORMIN HCL 500 MG TABLET (FP) PO SCH ×2 (07:08→16:49)
[2018-06-17] MEDS: ASPIRIN 81 MG CHEWABLE TABLETS PO SCH (09:54)
[2018-06-17] MEDS: amLODIPine BESYLATE 10 MG TABLET (FP) PO SCH (09:54)
[2018-06-17] MEDS: PRENATAL VITAMINS W/ FOLIC ACID TABLET (FP) PO SCH (09:54)
[2018-06-17] MEDS: HYDROCORTISONE 1% TOPICAL CREAM 30 GM TUBE TP SCH ×2 (09:55→21:14)
[2018-06-17] MEDS: THIAMINE HCL 100 MG TABLET (FP) PO SCH (21:14)
[2018-06-18] MEDS: metFORMIN HCL 500 MG TABLET (FP) PO SCH ×2 (07:38→16:38)
[2018-06-18] MEDS: PRENATAL VITAMINS W/ FOLIC ACID TABLET (FP) PO SCH (09:41)
[2018-06-18] MEDS: ASPIRIN 81 MG CHEWABLE TABLETS PO SCH (09:41)
[2018-06-18] MEDS: amLODIPine BESYLATE 10 MG TABLET (FP) PO SCH (09:41)
[2018-06-18] MEDS: HYDROCORTISONE 1% TOPICAL CREAM 30 GM TUBE TP SCH ×2 (09:42→21:04)
[2018-06-18] MEDS: THIAMINE HCL 100 MG TABLET (FP) PO SCH (21:04)
[2018-06-19] MEDS: metFORMIN HCL 500 MG TABLET (FP) PO SCH ×2 (07:28→16:30)
[2018-06-19] MEDS: PRENATAL VITAMINS W/ FOLIC ACID TABLET (FP) PO SCH (09:20)
[2018-06-19] MEDS: amLODIPine BESYLATE 10 MG TABLET (FP) PO SCH (09:20)
[2018-06-19] MEDS: ASPIRIN 81 MG CHEWABLE TABLETS PO SCH (09:20)
[2018-06-19] MEDS: HYDROCORTISONE 1% TOPICAL CREAM 30 GM TUBE TP SCH ×2 (09:20→21:08)
[2018-06-19] MEDS: THIAMINE HCL 100 MG TABLET (FP) PO SCH (21:08)
[2018-06-20] MEDS: metFORMIN HCL 500 MG TABLET (FP) PO SCH ×2 (06:47→16:49)
[2018-06-20] MEDS: ASPIRIN 81 MG CHEWABLE TABLETS PO SCH (09:41)
[2018-06-20] MEDS: PRENATAL VITAMINS W/ FOLIC ACID TABLET (FP) PO SCH (09:41)
[2018-06-20] MEDS: amLODIPine BESYLATE 10 MG TABLET (FP) PO SCH (09:41)
[2018-06-20] MEDS: HYDROCORTISONE 1% TOPICAL CREAM 30 GM TUBE TP SCH ×2 (09:42→21:09)
[2018-06-20] MEDS: THIAMINE HCL 100 MG TABLET (FP) PO SCH (21:09)
[2018-06-21 06:35] VITALS: BP 133/86; PULSE 70; TEMP 97.8
[2018-06-21] MEDS: metFORMIN HCL 500 MG TABLET (FP) PO SCH (06:43)
[2018-06-21] MEDS: amLODIPine BESYLATE 10 MG TABLET (FP) PO SCH (09:47)
[2018-06-21] MEDS: ASPIRIN 81 MG CHEWABLE TABLETS PO SCH (09:47)
[2018-06-21] MEDS: HYDROCORTISONE 1% TOPICAL CREAM 30 GM TUBE TP SCH (09:47)
[2018-06-21] MEDS: PRENATAL VITAMINS W/ FOLIC ACID TABLET (FP) PO SCH (09:47)
--- NOTE | 2018-06-21 14:57 | PN ---
[facility] Progress Note Note: PT COMPLETED REHAB AND DISCHARGED TODAY. MET WITH HIS COUNSELOR AND HAS BEEN REFERRED TO [facility] [place], [place] FOR CD AFTERCARE. PT REPORTS HE HAS A PCP DR. MEGAN CANO AND REPORTS HE HAS APPOINTMENT ON 06/22/18 WITH HIS DOCTOR. ALERT O X 3. Vital Signs - 24 hr 06/21/18 06/21/18 06/21/18 00:30 03:30 06:34 Temperature 97.8 F Pulse Rate 70 Respiratory 18 18 18 Rate Blood Pressure 133/86 NAD MEDICALLY STABLE PLAN:FOLLOW UP WITH AFTERCARE AT [facility] ON 06/21/18 AT 2:00 PM FOLLOW UP WITH PCP DR. MEGAN CANO ON 06/22/18 (PH:[phone]).
== END 2018-06-21 11:00 | disposition home or self-care (01) | DRG 772 ==
LOC: YASAS 17:53 → Y5N 17:54
PROVIDERS: ADMIT Neuromusculoskeletal Medicine & OMM; ATTEND Neuromusculoskeletal Medicine & OMM
PROC: HZ42ZZZ Group Counseling for Substance Abuse Treatment, Cognitive-Behavioral (ICD-10-PCS; principal; 2018-06-07)
DX: F10.230 Alcohol dependence with withdrawal, uncomplicated (principal); F14.20 Cocaine dependence, uncomplicated; F17.210 Nicotine dependence, cigarettes, uncomplicated; F32.9 Major depressive disorder, single episode, unspecified; I25.10 Atherosclerotic heart disease of native coronary artery without angina pectoris; I10 Essential (primary) hypertension; Z95.5 Presence of coronary angioplasty implant and graft; E78.00 Pure hypercholesterolemia, unspecified; R21 Rash and other nonspecific skin eruption; E11.65 Type 2 diabetes mellitus with hyperglycemia; B18.2 Chronic viral hepatitis C; Z59.0 Homelessness
CPT/HCPCS: 82962